=== PATIENT | male | born 1945 | race Caucasian/White ===

== ENCOUNTER → 2019-01-02 08:51 | Outpatient (BNVA) | payer MEDICARE, SELFPAY | PROVIDERS: PCP Internal Medicine; Referring Provider Internal Medicine; Visit Provider Nurse Practitioner Gerontology | DX: N40.1 Benign prostatic hyperplasia with lower urinary tract symptoms (principal); Z85.46 Personal history of malignant neoplasm of prostate; N30.90 Cystitis, unspecified without hematuria; I10 Essential (primary) hypertension; R39.198 Other difficulties with micturition | CPT/HCPCS: 51798; 81003; 99204 ==

== ENCOUNTER 2020-06-24 17:56 | Outpatient (REF) | payer MEDICARE, SELFPAY ==
[2020-06-24 19:43] LABS: BUN 11 mg/dL (7-18); Calcium 9.3 mg/dL (8.5-10.1); Chloride 105 mmol/L (98-107); Glucose 95 mg/dL (74-106); LDL CHOLESTEROL 111 mg/dL (<100); Potassium 4.3 mmol/L (3.5-5.1); Sodium 139 mmol/L (136-145)
== END 2020-06-24 18:16 ==
LOC: NCHCN 17:56
PROVIDERS: PCP Internal Medicine; Visit Provider Internal Medicine
DX: I10 Essential (primary) hypertension (principal); C61 Malignant neoplasm of prostate
CPT/HCPCS: 80048; 83721

== ENCOUNTER 2020-12-23 23:56 | Outpatient (REF) | payer MEDICARE, SELFPAY ==
[2020-12-23 21:51] LABS: PSA, Diagnostic 0.2 ng/mL (0.0-6.5)
== END 2020-12-23 23:57 | disposition home or self-care (01) ==
LOC: NCHCN 23:56
PROVIDERS: PCP Internal Medicine; Visit Provider Internal Medicine
DX: C61 Malignant neoplasm of prostate (principal)
CPT/HCPCS: 84153

== ENCOUNTER 2021-06-27 15:12 | Outpatient (REF) | payer MEDICARE, SELFPAY ==
[2021-06-27 19:22] LABS: Anion Gap 6.5 mmol/L (3-11); BUN 10 mg/dL (7-18); CO2 28.5 mmol/L (21.0-32.0); CREATININE 0.8 mg/dL (0.70-1.30); Calcium 9.1 mg/dL (8.5-10.1); Chloride 104 mmol/L (98-107); Glucose 80 mg/dL (74-106); Potassium 4.2 mmol/L (3.5-5.1); Sodium 139 mmol/L (136-145)
== END 2021-06-27 15:13 | disposition home or self-care (01) ==
LOC: NCHCN 15:12
PROVIDERS: PCP Internal Medicine; Visit Provider Internal Medicine
DX: I10 Essential (primary) hypertension (principal); C61 Malignant neoplasm of prostate; Z00.00 Encounter for general adult medical examination without abnormal findings
CPT/HCPCS: 80048

== ENCOUNTER 2022-07-12 18:55 | Outpatient (REF) | payer MEDICARE, SELFPAY ==
[2022-07-12 21:40] LABS: Anion Gap 11.2 mmol/L (3-11); BUN 14 mg/dL (7-18); CO2 25.8 mmol/L (21.0-32.0); CREATININE 0.8 mg/dL (0.70-1.30); Calcium 9.1 mg/dL (8.5-10.1); Calculated LDL 116 mg/dL (<100); Chloride 102 mmol/L (98-107); Cholesterol 198 mg/dL (<200); Estimated GFR 92.29 (mL/min/1.73m2); Glucose 92 mg/dL (74-106); HDL Cholesterol 65 mg/dL (40-60); Potassium 3.8 mmol/L (3.5-5.1); Sodium 139 mmol/L (136-145); Triglyceride 85 mg/dL (<150)
[2022-07-13 19:16] LABS: PSA, Diagnostic 0.2 ng/mL (<=6.5)
== END 2022-07-12 18:56 | disposition home or self-care (01) ==
LOC: NCHCN 18:55
PROVIDERS: PCP Internal Medicine; Visit Provider Internal Medicine
DX: I10 Essential (primary) hypertension (principal); C61 Malignant neoplasm of prostate
CPT/HCPCS: 80048; 80061; 84153

== ENCOUNTER 2024-07-07 15:00 | Outpatient (REF) | payer MEDICARE, SELFPAY ==
[2024-07-07 19:20] LABS: HCT 42.2 % (40.0-50.0); MCH 30.2 pg (27.0-33.0); MCHC 33.2 % (32.0-36.0); MCV 91 fL (80-95); MPV 9.7 fL (8.0-11.0); Platelet Count 323 10^3/uL (130-400); RBC 4.63 10^6/uL (4.36-5.78); RDW 13.8 % (11.8-14.1); RDW-SD 46.2 fL
[2024-07-07 19:40] LABS: ALT 28 U/L (16-63); AST 20 U/L (15-37); Albumin 3.9 g/dL (3.4-5.0); Alkaline Phosphatase 84 U/L (46-116); Anion Gap 5.7 mmol/L (3-11); BUN 8 mg/dL (7-18); Bilirubin, Total 0.66 mg/dL (0.2-1.0); C-Reactive Protein < 0.50 mg/dL (<or=0.5); CO2 30.3 mmol/L (21.0-32.0); CREATININE 0.9 mg/dL (0.70-1.30); Chloride 105 mmol/L (98-107); Creatine Kinase 127 U/L (39-308); Estimated GFR 88.51 (mL/min/1.73m2); Glucose 103 mg/dL (74-106); Potassium 4.1 mmol/L (3.5-5.1); Sodium 141 mmol/L (136-145); TSH 2.13 uIU/Ml (0.36-3.74); Total Protein 7.8 g/dL (6.4-8.2)
[2024-07-08 20:55] LABS: PSA, Screening 0.1 ng/mL (<=6.5)
== END 2024-07-07 15:01 | disposition home or self-care (01) ==
LOC: NCHCN 15:00
PROVIDERS: PCP Internal Medicine; Visit Provider Internal Medicine
DX: R53.83 Other fatigue (principal); Z85.46 Personal history of malignant neoplasm of prostate; Z12.5 Encounter for screening for malignant neoplasm of prostate
CPT/HCPCS: 80053; 82550; 84153; 85027; 84443; 86140

== ENCOUNTER 2025-01-05 14:21 | Outpatient (REF) | payer MEDICARE, SELFPAY ==
[2025-01-06 18:29] LABS: PSA, Screening 0.2 ng/mL (<=6.5)
== END 2025-01-05 14:22 | disposition home or self-care (01) ==
LOC: NCHCN 14:21
PROVIDERS: PCP Internal Medicine; Visit Provider Internal Medicine
DX: C61 Malignant neoplasm of prostate (principal)
CPT/HCPCS: 84153

== ENCOUNTER 2025-04-02 15:50 | Outpatient (REF) | payer MEDICARE, SELFPAY ==
[2025-04-02 19:30] LABS: ALT 39 U/L (16-63); Calculated LDL 99 mg/dL (<100); Cholesterol 177 mg/dL (<200); HDL Cholesterol 63 mg/dL (>or=40); Triglyceride 75 mg/dL (<150)
[2025-04-02 19:50] LABS: Creatine Kinase 241 U/L (39-308)
== END 2025-04-02 15:51 | disposition home or self-care (01) ==
LOC: NCHCN 15:50
PROVIDERS: PCP Internal Medicine; Visit Provider Internal Medicine
DX: E78.5 Hyperlipidemia, unspecified (principal)
CPT/HCPCS: 80061; 82550; 84460